=== PATIENT | male | born 1975 | race Caucasian/White ===

== ENCOUNTER 2016-10-05 17:03 | Emergency (ER) | payer OTHER ==
[2016-10-05] MEDS ORDERED: HALOPERIDOL LACT 5 MG/ML INJ IM ONE (17:14)
--- NOTE | 2016-10-05 17:40 | EDPHY ---
Mental Health General Time Medically Cleared for Psychiatric Evaluation: 19:00 Time of Transfer of Care: 01:[address] To Dr:: Tere Narrative: Signed out to Tere at 2300 with psych evaluation pending. Court ordered mental health evaluation. (Deep Colmenares) CHIEF COMPLAINT: M1 hold HISTORY OF PRESENT ILLNESS: 40-year-old male brought in by police on a court ordered M1 hold for mental health evaluation. Court order was placed yesterday , October 04. Patient has a history of mental illness and inpatient psychiatric hospitalization. He has been acting erratically, paranoid, suspicious and is scaring his mother, sister and nephew who he lives with. The patient recently flew to [place] and spent 3 days at the [facility] as the patient hates the [facility] and wants to help [place]. He was kicked out of the [facility]. The patient arrived to the emergency department agitated, refusing blood draw, not cooperating. REVIEW OF SYSTEMS: Unable to obtain due to mental status Physical Exam Gen: Awake, agitated HEENT: PERRL, moist mucous membranes NECK: no meningismus CV: regular rate and regular rhythm PULM: CTAB, no wheezes ABDOMEN: soft, non tender to palpation, BS present NEURO: No facial asymmetry, moves all extremities, follows commands EXTREMITIES: normal appearing SKIN: no rash or break in skin on exposed skin PSYCH: Agitated, suspicious (Parris Tinsley) Medical Decision Makin-patient evaluated by mental health, they are seeking placement. Patient reports passed on to Dr. Jackman at the end of my shift pending inpatient psychiatric placement. (Parris Tinsley) [id number]: This patient has been accepted by Dr. Kearney. At [place]. Patient be appropriately transfer there. Emtala filled out. (Rosalino Jackman) - Objective Vital Signs: Initial Vital Signs Temperature (C) 37.3 C 10/05/16 17:07 Heart Rate 106 H 10/05/16 17:07 Respiratory Rate 18 10/05/16 17:07 Blood Pressure 169/109 H 10/05/16 17:07 O2 Sat (%) 99 10/05/16 17:07 O2 Delivery Mode Room Air Allergies/Adverse Reactions: No Known Allergies Allergy (Unverified 10/05/16 17:07) Home Medications: Medication Instructions Recorded NK [No Known Home Meds] 10/05/16 Medications Given: Discontinued Medications Haloperidol Lactate (Haldol Injection) 10 mg IM PRN ONE Stop: 10/05/16 17:15 Last Admin: 10/05/16 21:08 Dose: Not Given Olanzapine (Olanzapine) 10 mg PO ONCE ONE Stop: 10/05/16 18:43 Last Admin: 10/05/16 18:44 Dose: 10 mg Olanzapine (Zyprexa Zydis) 10 mg PO EDNOW ONE Stop: 10/05/16 20:40 Last Admin: 10/05/16 21:07 Dose: Not Given Laboratory Results: Laboratory Results 10/05/16 21:10 10/05/16 21:10 10/05/16 10/05/16 10/05/16 21:10 21:10 17:45 WBC 7.06 10^3/uL 10^3/uL (3.80-9.50) RBC 4.70 10^6/uL 10^6/uL (4.40-6.38) Hgb 14.5 g/dL g/dL (13.7-17.5) Hct 41.8 % % (40.0-51.0) MCV 88.9 fL fL (81.5-99.8) MCH 30.9 pg pg (27.9-34.1) MCHC 34.7 g/dL g/dL (32.4-36.7) RDW 12.9 % % (11.5-15.2) Plt Count 225 10^3/uL 10^3/uL (150-400) MPV 12.0 fL H fL (8.7-11.7) Neut % (Auto) 65.9 % % (39.3-74.2) Lymph % (Auto) 21.5 % % (15.0-45.0) Ceiba % (Auto) 9.5 % % (4.5-13.0) Eos % (Auto) 2.0 % % (0.6-7.6) Baso % (Auto) 0.8 % % (0.3-1.7) Nucleat RBC Rel Count 0.0 % % (0.0-0.2) Absolute Neuts (auto) 4.65 10^3/uL 10^3/uL (1.70-6.50) Absolute Lymphs (auto) 1.52 10^3/uL 10^3/uL (1.00-3.00) Absolute Monos (auto) 0.67 10^3/uL 10^3/uL (0.30-0.80) Absolute Eos (auto) 0.14 10^3/uL 10^3/uL (0.03-0.40) Absolute Basos (auto) 0.06 10^3/uL 10^3/uL (0.02-0.10) Absolute Nucleated RBC 0.00 10^3/uL 10^3/uL (0-0.01) Immature Gran % 0.3 % % (0.0-1.1) Immature Gran # 0.02 10^3/uL 10^3/uL (0.00-0.10) Sodium 141 mEq/L mEq/L (134-144) Potassium 4.6 mEq/L mEq/L (3.5-5.2) Chloride 107 mEq/L mEq/L (97-110) Carbon Dioxide 21 mEq/l L mEq/l (22-31) Anion Gap 13 mEq/L mEq/L (8-16) BUN 15 mg/dL mg/dL (7-23) Creatinine 0.9 mg/dL mg/dL (0.7-1.3) Estimated GFR > 60 Glucose 95 mg/dL mg/dL (70-100) Calcium 9.4 mg/dL mg/dL (8.5-10.4) Urine Opiates Screen NEGATIVE (NEGATIVE) Urine Barbiturates NEGATIVE (NEGATIVE) Ur Phencyclidine Scrn NEGATIVE (NEGATIVE) Ur Amphetamine Screen NEGATIVE (NEGATIVE) U Benzodiazepines Scrn NEGATIVE (NEGATIVE) Urine Cocaine Screen NEGATIVE (NEGATIVE) U Marijuana (THC) Screen NON-NEGATIVE H (NEGATIVE) Ethyl Alcohol < 10 mg/dL mg/dL (0-10) Departure - Departure Disposition: Other Psych, Not [facility] Clinical Impression: Acute psychosis Condition: Fair Referrals: NONE *PRIMARY CARE P,. [Primary Care Provider] - As per Instructions
[2016-10-05] MEDS ORDERED: OLANZapine DISINTEGR 10 MG TAB ONE ×2 (18:39→20:33)
[2016-10-05] MEDS ORDERED: OLANZapine 10 MG TAB PO ONE (18:42)
[2016-10-05] MEDS ORDERED: OLANZapine DISINTEGR 10 MG TAB PO ONE (20:39)
[2016-10-05 21:13] LABS: % IMMATURE GRANULYOCYTES 0.3 % (0.0-1.1); ABSOLUTE IMMATURE GRANULOCYTES 0.02 10^3/uL (0.00-0.10); ADD DIFF? NO; ADD MORPH? NO; ADD SCAN? NO; ATYPICAL LYMPHOCYTE FLAG 0 (0-99); FRAGMENT RBC FLAG 0 (0-99); HEMATOCRIT 41.8 % (40.0-51.0); HEMOGLOBIN 14.5 g/dL (13.7-17.5); LEFT SHIFT FLG 0 (0-99); LIPEMIA HEMOLYSIS FLAG 90 (0-99); MEAN CELL HEMOGLOBIN 30.9 pg (27.9-34.1); MEAN CELL HEMOGLOBIN CONCENTR. 34.7 g/dL (32.4-36.7); MEAN CELL VOLUME 88.9 fL (81.5-99.8); PLATELET CLUMPS FLAG 30 (0-99); PLATELET COUNT 225 10^3/uL (150-400); RED CELL DISTRIBUTION WIDTH 12.9 % (11.5-15.2)
[2016-10-05 21:32] LABS: ANION GAP 13 mEq/L (8-16); CALCIUM 9.4 mg/dL (8.5-10.4); CARBON DIOXIDE 21 mEq/l (22-31); CHLORIDE 107 mEq/L (97-110); CREATININE 0.9 mg/dL (0.7-1.3); ETHANOL SERUM < 10 mg/dL (0-10); GLOMERULAR FILTRATION RATE > 60; GLUCOSE 95 mg/dL (70-100); POTASSIUM 4.6 mEq/L (3.5-5.2); SODIUM 141 mEq/L (134-144)
[2016-10-06] MEDS ORDERED: risperiDONE 2 MG TAB PO ONE (01:41)
[2016-10-06 04:13] VITALS: RESP 16; TEMP 97.9
[2016-10-06 08:27] VITALS: BP 129/89; PULSE 82; O2SAT 96
== END 2016-10-06 08:27 ==
DX: F23 Brief psychotic disorder (principal)
CPT/HCPCS: 80305; G0480